=== PATIENT | female | born 1990 | race African-American/Black ===

== ENCOUNTER 2017-02-27 08:18 | Emergency (ER) | payer SELFPAY ==
[2017-02-27] MEDS ORDERED: Lidocaine 1% 20 ML MDV ONE (08:39)
[2017-02-27] MEDS ORDERED: Sulfameth/Trimethoprim DS 800-160mg TAB ONE (09:14)
== END 2017-02-27 09:26 | disposition home or self-care (01) ==
LOC: NAV ERS 08:18
DX: L02.02 Furuncle of face (principal); F17.210 Nicotine dependence, cigarettes, uncomplicated
CPT/HCPCS: 10060; 87070; 87205; J2001

== ENCOUNTER 2017-10-18 19:29 | Emergency (ER) | payer SELFPAY ==
[2017-10-18 19:43] LABS: Bilirubin Negative (Negative); Blood, Urine Negative (Negative); Clarity Clear (Clear); Glucose, Urine (Dipstick) Negative (Negative); Leukocyte Negative (Negative); Nitrite Negative (Negative); Protein, Urine (Dipstick) Negative (Neg-Trace); Specific Gravity, Urine 1.025 (1.005-1.030)
[2017-10-18 20:04] LABS: Wet Prep Clue Cells Clue Cells PRESENT (None Seen); Wet Prep Trichomonas Trichomonas Absent (None Seen)
[2017-10-18 20:06] LABS: Wet Prep Spermatozoa 2nd Revie Agree with result (None Seen)
[2017-10-20 22:57] LABS: Chlamydia by PCR Not Detected (NotDetected); GC by PCR Not Detected (NotDetected)
== END 2017-10-18 20:14 | disposition home or self-care (01) ==
LOC: EEVIPCON 19:29 → NAV ERS 19:29
DX: N76.0 Acute vaginitis (principal); F17.210 Nicotine dependence, cigarettes, uncomplicated; Z79.899 Other long term (current) drug therapy
CPT/HCPCS: 81003; 87210; 87491; 87591; 99283